=== PATIENT | male | born 1965 | race Caucasian/White ===

== ENCOUNTER 2021-08-04 14:15 | Emergency (ER) | payer SELFPAY ==
[~2021-08-04] VITALS: Ht 165.1 cm; Wt 80.0 kg
[2021-08-04 15:36] VITALS: BP 128/73
[2021-08-04] MEDS ORDERED: SODIUM CHLORIDE 0.9% 1,000 ML IV ONE (16:30)
[2021-08-04 17:00] LABS: EOSINOPHILS % 0.9 % (0.0-5.0); HEMATOCRIT. 36.2 % (42.0-52.0); HEMOGLOBIN. 12.9 g/dL (14.0-18.0); LYMPHOCYTES % 29.3 % (20.0-50.0); MEAN CORPUSCULAR VOLUME 101.2 fL (80.0-94.0); MEAN PLATELET VOLUME 6.5 fl (7.4-10.4); MONOCYTES % 6.6 % (2.0-8.0); NEUTROPHILS % 62.2 % (40.0-76.0); PLATELET 296 x1000/uL (130-400); RED BLOOD CELL COUNT 3.58 mill/uL (4.7-6.1); RED CELL DISTRIBUTION WIDTH 13.2 % (11.6-14.6)
[2021-08-04 17:08] LABS: CHLORIDE 105 mEq/L (98-107)
[2021-08-04 17:13] LABS: ETHANOL BLOOD 296 mg/dL
== END 2021-08-04 17:13 | disposition left against medical advice (07) ==
LOC: ER 14:15
DX: G92.9 Unspecified toxic encephalopathy (principal); D64.9 Anemia, unspecified; F17.290 Nicotine dependence, other tobacco product, uncomplicated; Z90.49 Acquired absence of other specified parts of digestive tract
CPT/HCPCS: 36415; 71045; 80053; 80307; 80320; 80329; 85025; 99284; J7030; G0480